=== PATIENT | female | born 1960 | race Caucasian/White ===

== ENCOUNTER → 2017-04-07 | Outpatient (CLI) | payer OTHER ==
--- NOTE | 2017-04-07 14:25 | XR ---
EXAMINATION TYPE: XR lumbar spine 2 or 3V DATE OF EXAM: 04/07/2017 CLINICAL HISTORY: Low back pain for a few months radiating down left leg. TECHNIQUE: Frontal and lateral images of the lumbar spine are obtained. COMPARISON: None FINDINGS: There are 5 lumbar type vertebral bodies identified. The lumbar spine shows straightened alignment without evidence of acute fracture or dislocation. Vertebral body heights and disk space he ights are within normal limits. No significant spurring is seen. Horizontal density superior to right L2 transverse process on frontal view does not reproduced on lateral view presumed external to patie nt. Cholecystectomy clips are noted. IMPRESSION: Straightening of lumbar spine otherwise fairly unremarkable study.
== END | disposition home or self-care (01) ==
LOC: RADXRMAIN 14:04
PROVIDERS: ATTEND Internal Medicine Geriatric Medicine
DX: M54.5 Low back pain (principal)
CPT/HCPCS: 72100

== ENCOUNTER → 2017-04-28 | Outpatient (CLI) | payer OTHER ==
--- NOTE | 2017-04-28 23:10 | MR ---
EXAMINATION TYPE: MR lumbar spine wo con DATE OF EXAM: 04/28/2017 COMPARISON: NONE HISTORY: LBP, radiates down rt leg x 2 mos, injured while lifting TECHNIQUE: Multiplanar, multisequence images of the lumbar spine were acquired. The lumbar vertebra have normal alignment. Disc spaces are fairly normal for age. There is a small po sterior disc herniation at L5-S1 on the right side.. There is developmentally adequate spinal canal a nd no spinal stenosis. The neural foramina are widely patent. There is no compression fracture. Sacro iliac joints appear normal. There is no paraspinal mass. I see no focal bone destruction. IMPRESSION: Small posterior disc herniation at L5-S1 on the right side. This is probably clinically significant i n this patient with right-sided pain.. No spinal stenosis. No fracture.
== END | disposition home or self-care (01) ==
LOC: RADMRIMAIN 17:51
PROVIDERS: ATTEND Physical Medicine & Rehabilitation
DX: M51.17 Intervertebral disc disorders with radiculopathy, lumbosacral region (principal)
CPT/HCPCS: 72148

== ENCOUNTER → 2018-02-22 | Outpatient (CLI) | payer MEDICAID ==
--- NOTE | 2018-02-22 23:19 | BD ---
EXAMINATION TYPE: Axial Bone Density DATE OF EXAM: 02/22/2018 COMPARISON: NONE CLINICAL HISTORY: 67-year-old female osteoporosis Height: 5 FT 3 IN Weight: 115 FRAX RISK QUESTIONS: History of Fracture in Adulthood: YES Secondary Osteoporosis: 3. Menopause before 45: YES RISK FACTORS HISTORY OF: Family History of Osteoporosis: YES Active: YES Postmenopausal woman: AGE 44 MEDICATIONS: Additional Medications: CLONOPIN, VIT D 3 Additional History: EXAM MEASUREMENTS: Bone mineral densitometry was performed using the [employer] System. Bone mineral density as measured about the Lumbar spine is: ----- L1-L4(G/cm2): 0.954 T Score Values are as follows: ----- L2: -2.0 ----- L3: -1.5 ----- L4: -2.5 ----- L1-L4: -1.9 BASELINE Bone mineral density about the R hip (g/cm2): 0.776 Bone mineral density about the L hip (g/cm2): 0.859 T Score values are as follows: -----R Neck: -1.9 -----L Neck: -1.3 -----R Total: -1.3 -----L Total: -1.2 BASELINE IMPRESSION: Osteopenia (T Score between -2.5 and -1). There is slightly increased risk of fracture and the patient may be considered for treatment. Re-Screen 2-5 years. NOTE: T-SCORE=SD OF THE YOUNG ADULT MEAN.
--- NOTE | 2018-02-23 14:52 | MM ---
Reason for exam: screening (asymptomatic). History: Patient is postmenopausal and history of other cancer. Physical Findings: A clinical breast exam by your physician is recommended on an annual basis and results should be correlated with mammographic findings. MG 3D Screening Mammo W/Cad Bilateral CC and MLO view(s) were taken. No prior studies available for comparison. The breast tissue is heterogeneously dense. This may lower the sensitivity of mammography. Finding: There are typically benign vascular calcifications in the outer quadrant of both breasts. There is no discrete abnormality. ASSESSMENT: Benign, BI-RAD 2 RECOMMENDATION: Routine screening mammogram of both breasts in 1 year.
== END | disposition home or self-care (01) ==
LOC: RADMAMWWP 06:48
PROVIDERS: ATTEND Internal Medicine Geriatric Medicine
DX: Z12.31 Encounter for screening mammogram for malignant neoplasm of breast (principal); M85.80 Other specified disorders of bone density and structure, unspecified site
CPT/HCPCS: 77063; 77067; 77080

== ENCOUNTER → 2018-11-12 | Outpatient (CLI) | payer BC ==
--- NOTE | 2018-11-12 15:27 | XR ---
EXAMINATION TYPE: XR chest 2V DATE OF EXAM: 11/12/2018 COMPARISON: NONE HISTORY: Cough TECHNIQUE: Frontal and lateral views of the chest are obtained. FINDINGS: Heart and mediastinum are normal. There is some pulmonary hyperinflation. There are no hil ar masses. Bony thorax is intact. IMPRESSION: No active cardiopulmonary disease. Normal heart.
== END | disposition home or self-care (01) ==
LOC: RADXRMAIN 15:08
PROVIDERS: ATTEND Emergency Medicine
DX: R05 Cough (principal)
CPT/HCPCS: 71046

== ENCOUNTER → 2020-02-12 | Outpatient (CLI) | payer BC ==
[2020-02-12 09:26] LABS: Basophils % (A) 1 %; Eosinophils # (A) 0.1 k/uL (0-0.7); Eosinophils % (A) 1 %; HCT 36.7 % (34.0-46.0); HGB 12.5 gm/dL (11.4-16.0); Lymphocytes # (A) 1.9 k/uL (1.0-4.8); Lymphocytes % (A) 38 %; MCH 30.1 pg (25.0-35.0); MCV 88.4 fL (80.0-100.0); Mean Platelet Volume 6.6; Monocytes # (A) 0.3 k/uL (0-1.0); Monocytes % (A) 7 %; Neutrophils # (A) 2.6 k/uL (1.3-7.7); Neutrophils % (A) 52 %; Platelet Count 260 k/uL (150-450); RBC 4.15 m/uL (3.80-5.40); RDW 11.9 % (11.5-15.5)
[2020-02-12 17:30] LABS: Erythrocyte Sedimentation Rate 10 mm/Hr (0-30)
[2020-02-12 20:51] LABS: ALT 15 U/L (8-44); AST 23 U/L (13-35); African American GFR (CKD) 93.5 (60.0-200.0); Albumin/Globulin Ratio 1.72 (1.60-3.17); Alkaline Phosphatase 53 U/L (41-126); C Reactive Protein <0.4 mg/dL (0.0-0.8); Calcium 9.6 mg/dL (8.7-10.3); Carbon Dioxide 27.5 mmol/L (21.6-31.8); Chloride 106 mmol/L (96-109); Globulin 2.5 g/dL (1.6-3.3); Glucose 99 mg/dL (70-110); Non-African American GFR(CKD) 80.7 (60.0-200.0); Potassium 3.6 mmol/L (3.5-5.5); Rheumatoid Factor, Qnt 7 IU/mL (0-15); Sodium 142 mmol/L (135-145); Total Bilirubin 0.8 mg/dL (0.3-1.2); Total Protein 6.8 g/dL (6.2-8.2)
[2020-02-12 21:15] LABS: Anti-DNA, DS unit <1.0 IU/mL; DNA Double-Stranded NEGATIVE (NEGATIVE)
[2020-02-13 11:41] LABS: HLA B27 NEGATIVE
== END | disposition home or self-care (01) ==
LOC: LABWHC1 08:12
PROVIDERS: ATTEND Internal Medicine Geriatric Medicine
DX: M19.90 Unspecified osteoarthritis, unspecified site (principal); E78.2 Mixed hyperlipidemia; M35.3 Polymyalgia rheumatica
CPT/HCPCS: 36415; 80053; 84443; 85025; 85652; 86038; 86140; 86225; 86431; 86812

== ENCOUNTER 2021-03-28 08:43 | Day surgery (SDC) | payer MEDICAID ==
[2021-03-27 13:34] VITALS: BMI 20.4
[~2021-03-28 08:43] MED LIST: LACTATED RINGERS 1,000 ML IV SCH
[2021-03-28 10:25] VITALS: RESP 16; TEMP 98.5
[2021-03-28] MEDS ORDERED: PROPOFOL 10 MG/ML 20 ML VIAL IV ONE (11:22)
--- NOTE | 2021-03-28 11:47 | P.PCN ---
Date of Procedure: 03/28/21 Preoperative Diagnosis: Screening Postoperative Diagnosis: Diverticulosis Internal hemorrhoids Procedure(s) Performed: Colonoscopy Anesthesia: MAC Surgeon: Alan Carballo Pathology: none sent Condition: stable Disposition: same day Indications for Procedure: 60-year-old female presents for screening colonoscopy. She has had some recent change in bowels with constipation episode. Complains of some abdominal pain occasionally. Last colonoscopy was 10 years ago. Operative Findings: Diverticulosis Internal hemorrhoids Description of Procedure: The patient was brought to the endoscopy suite and placed in left lateral decubitus position and adequate sedation was achieved using conscious sedation. A digital rectal exam was performed and mild internal hemorrhoids were palpated. An endoscope was then placed in the rectum and advanced to the cecum as identified by landmarks including the appendiceal orifice and the ileocecal valve. The prep was good. The colonoscope was then slowly withdrawn, examining for any mucosal abnormalities. The cecum, ascending, transverse, descending and sigmoid colon were visualized adequately. No obvious polyps were noted throughout the colon. No obvious neoplastic lesions were noted. There is mild evidence of diverticulosis. Retroflexion was performed in the rectum and internal hemorrhoids were visible. Excess air was removed, the colonoscope withdrawn and the procedure terminated. The patient was then transferred to the recovery unit in stable condition. Repeat colonoscopy should be performed in 8 years for screening.
[2021-03-28] MEDS ORDERED: IV FLUID CONTINUATION 600 ML IV ONE (11:50)
[2021-03-28 12:16] VITALS: BP 139/84; PULSE 87
== END 2021-03-28 12:27 | disposition home or self-care (01) ==
LOC: ORWHC2ENDO 08:43
PROVIDERS: ATTEND Surgery
DX: Z12.11 Encounter for screening for malignant neoplasm of colon (principal); K57.90 Diverticulosis of intestine, part unspecified, without perforation or abscess without bleeding; K64.8 Other hemorrhoids; G47.33 Obstructive sleep apnea (adult) (pediatric); K21.9 Gastro-esophageal reflux disease without esophagitis; Z79.899 Other long term (current) drug therapy
CPT/HCPCS: G0121; J2704

== ENCOUNTER → 2021-06-25 | Outpatient (CLI) | payer MEDICAID ==
--- NOTE | 2021-06-25 14:40 | US ---
EXAMINATION TYPE: US pelvic complete DATE OF EXAM: 06/25/2021 COMPARISON: NONE CLINICAL HISTORY: R10.2 PELVIC PAIN. Pelvic pain for the past 3 months with history of left oophorect davi. TECHNIQUE: Transabdominal (TA). Transabdominal sonographic images of the pelvis were acquired. Date of LMP: 10 years ago EXAM MEASUREMENTS: Uterus: 7.5 x 4.1 x 2.4 cm Endometrial Stripe: Surgical ablation 20 years prior. No measurable endometrial canal is evident. Right Ovary: 2.3 x 1.5 x 1.6 cm Left Ovary: Surgically absent 1. Uterus: Anteverted wnl 2. Endometrium: Surgically absent 3. Right Ovary: Hypoechoic 4. Left Ovary: Surgically absent 5. Bilateral Adnexa: wnl 6. Posterior cul-de-sac: wnl IMPRESSION: 1. No acute ultrasound abnormality ultrasound.
== END | disposition home or self-care (01) ==
LOC: RADUSWWP 14:06
PROVIDERS: ATTEND Internal Medicine Geriatric Medicine
DX: R10.2 Pelvic and perineal pain (principal)
CPT/HCPCS: 76856

== ENCOUNTER → 2021-07-21 | Outpatient (CLI) | payer MEDICAID, OTHER | END | disposition home or self-care (01) | LOC: LABWHC1 09:55 | PROVIDERS: ATTEND Emergency Medicine | DX: Z20.822 Contact with and (suspected) exposure to COVID-19 (principal) | CPT/HCPCS: 87635 ==

== ENCOUNTER → 2021-09-23 | Outpatient (CLI) | payer MEDICAID ==
[2021-09-23 15:20] LABS: Basophils # (A) 0.02 X 10*3/uL (0.00-0.10); Basophils % (A) 0.4 %; Eosinophils # (A) 0.11 X 10*3/uL (0.04-0.35); Eosinophils % (A) 2.3 %; HCT 41.4 % (37.2-46.3); HGB 14.1 g/dL (12.0-15.0); Immature Grans, Automated 0.2 %; Lymphocytes # (A) 1.79 X 10*3/uL (0.90-5.00); Lymphocytes % (A) 37.4 %; MCH 30.5 pg (27.0-32.0); MCHC 34.1 g/dL (32.0-37.0); MCV 89.4 fL (80.0-97.0); Mean Platelet Volume 9.1 fL (9.5-12.2); Monocytes # (A) 0.58 X 10*3/uL (0.20-1.00); Monocytes % (A) 12.1 %; NRBC Per 100 WBC 0 /100 WBCS (0.0-0.0); Neutrophils # (A) 2.28 X 10*3/uL (1.80-7.70); Neutrophils % (A) 47.6 %; Platelet Count 245 X 10*3/uL (140-440); RBC 4.63 X 10*6/uL (4.10-5.20); RDW 12.6 % (11.5-14.5); WBC 4.79 X 10*3/uL (4.50-10.00)
[2021-09-23 16:27] LABS: ALT 15 U/L (8-44); AST 24 U/L (13-35); African American GFR (CKD) 92.9 (60.0-200.0); Albumin 4.4 g/dL (3.8-4.9); Albumin/Globulin Ratio 1.63 (1.60-3.17); Alkaline Phosphatase 58 U/L (41-126); Calcium 9.3 mg/dL (8.7-10.3); Carbon Dioxide 25.6 mmol/L (20.0-27.5); Chloride 105 mmol/L (96-109); Globulin 2.7 g/dL (1.6-3.3); Glucose 96 mg/dL (70-110); Non-African American GFR(CKD) 80.1 (60.0-200.0); Potassium 3.8 mmol/L (3.5-5.5); Sodium 141 mmol/L (135-145); Total Protein 7.1 g/dL (6.2-8.2)
[2021-09-23 16:28] LABS: Chol/HDL Ratio 2.96 Ratio; LDL Cholesterol,Calculated 118.6 mg/dL (0.0-131.0)
== END | disposition home or self-care (01) ==
LOC: LABWHC1 08:51
PROVIDERS: ATTEND Internal Medicine Geriatric Medicine
DX: G47.33 Obstructive sleep apnea (adult) (pediatric) (principal); E78.2 Mixed hyperlipidemia; R73.9 Hyperglycemia, unspecified
CPT/HCPCS: 36415; 80053; 80061; 83036; 84443; 85025

== ENCOUNTER → 2022-04-15 | Outpatient (CLI) | payer MEDICAID | END | disposition home or self-care (01) | LOC: RADMAMWWP 10:52 | PROVIDERS: ATTEND Obstetrics & Gynecology | DX: Z53.9 Procedure and treatment not carried out, unspecified reason (principal) ==

== ENCOUNTER → 2022-04-21 | Outpatient (CLI) | payer MEDICAID ==
--- NOTE | 2022-04-22 19:07 | MM ---
Reason for Exam: Screening (asymptomatic). Last mammogram was performed 4 year(s) and 2 month(s) ago. Patient History: Menarche at age 14. First Full-Term at age 22. Left ovary removed at age 35. Postmenopausal. Other cancer. Risk Values: Patricia 5 year model risk: 1.2%. NCI Lifetime model risk: 5.8%. Prior Study Comparison: 02/22/2018 Bilateral Screening Mammogram, [facility]. Tissue Density: The breast tissue is heterogeneously dense. This may lower the sensitivity of mammography. Findings: Analyzed By CAD. Chronic nodules within the left upper breast, stable. No suspicious groups of microcalcifications, spiculated or lobular masses, architectural distortion or other secondary signs of malignancy are mammographically apparent. Overall Assessment: Benign, BI-RAD 2 Management: Screening Mammogram of both breasts in 1 year. A negative mammogram report should not preclude additional follow up of suspicious palpable abnormalities. Patient should continue monthly self breast exam. A clinical breast exam by your physician is recommended on an annual basis and results should be correlated with mammographic findings. Electronically signed and approved by: Nacho Howe D.O. Radiologis
== END | disposition home or self-care (01) ==
LOC: RADMAMWWP 07:42
PROVIDERS: ATTEND Obstetrics & Gynecology
DX: Z12.31 Encounter for screening mammogram for malignant neoplasm of breast (principal); Z78.0 Asymptomatic menopausal state
CPT/HCPCS: 77063; 77067

== ENCOUNTER → 2022-10-06 | Outpatient (CLI) | payer MEDICAID ==
[2022-10-06 18:38] LABS: Basophils # (A) 0.04 X 10*3/uL (0.00-0.10); Basophils % (A) 0.7 %; Eosinophils # (A) 0.11 X 10*3/uL (0.04-0.35); Eosinophils % (A) 1.9 %; HCT 41.8 % (37.2-46.3); HGB 13.9 g/dL (12.0-15.0); Immature Grans, Automated 0.2 %; Lymphocytes # (A) 1.74 X 10*3/uL (0.90-5.00); Lymphocytes % (A) 29.4 %; MCHC 33.3 g/dL (32.0-37.0); MCV 90.3 fL (80.0-97.0); Mean Platelet Volume 8.9 fL (9.5-12.2); Monocytes # (A) 0.59 X 10*3/uL (0.20-1.00); NRBC Per 100 WBC 0 /100 WBCS (0.0-0.0); Neutrophils # (A) 3.43 X 10*3/uL (1.80-7.70); Neutrophils % (A) 57.8 %; Platelet Count 248 X 10*3/uL (140-440); RBC 4.63 X 10*6/uL (4.10-5.20); RDW 11.9 % (11.5-14.5); WBC 5.92 X 10*3/uL (4.50-10.00)
[2022-10-06 20:22] LABS: ALT 19 U/L (8-44); AST 25 U/L (13-35); African American GFR (CKD) 109.3 (60.0-200.0); Albumin 4.5 g/dL (3.8-4.9); Albumin/Globulin Ratio 1.58 (1.60-3.17); Alkaline Phosphatase 71 U/L (41-126); BUN/Creat Ratio 20.97 Ratio (12.00-20.00); Blood Urea Nitrogen 14.3 mg/dL (9.0-27.0); Calcium 9.5 mg/dL (8.7-10.3); Carbon Dioxide 30.7 mmol/L (20.0-27.5); Chloride 102 mmol/L (96-109); Chol/HDL Ratio 2.81 Ratio; Globulin 2.9 g/dL (1.6-3.3); Glucose 105 mg/dL (70-110); LDL Cholesterol,Calculated 105.4 mg/dL (0.0-131.0); Non-African American GFR(CKD) 94.3 (60.0-200.0); Sodium 140 mmol/L (135-145); Total Protein 7.4 g/dL (6.2-8.2)
== END | disposition home or self-care (01) ==
LOC: LABWHC1 12:10
PROVIDERS: ATTEND Internal Medicine Geriatric Medicine
DX: E78.2 Mixed hyperlipidemia (principal); R73.9 Hyperglycemia, unspecified; R94.6 Abnormal results of thyroid function studies
CPT/HCPCS: 36415; 80053; 80061; 83036; 84443; 85025

== ENCOUNTER → 2023-11-04 | Outpatient (CLI) | payer MEDICAID ==
[2023-11-04 11:15] LABS: Basophils # (A) 0.03 X 10*3/uL (0.00-0.10); Basophils % (A) 0.5 %; Eosinophils % (A) 1.7 %; HCT 38.8 % (37.2-46.3); HGB 13.4 g/dL (12.0-15.0); Lymphocytes # (A) 1.92 X 10*3/uL (0.90-5.00); Lymphocytes % (A) 33.2 %; MCH 30.6 pg (27.0-32.0); MCHC 34.5 g/dL (32.0-37.0); MCV 88.6 FL (80.0-97.0); Monocytes # (A) 0.59 X 10*3/uL (0.20-1.00); Monocytes % (A) 10.2 %; NRBC Per 100 WBC 0 X 10*3/uL (0.00-0.01); Neutrophils # (A) 3.13 X 10*3/uL (1.80-7.70); Neutrophils % (A) 54.2 %; Platelet Count 241 X 10*3/uL (140-440); RBC 4.38 X 10*6/uL (4.10-5.20); RDW 11.8 % (11.5-14.5); WBC 5.78 X 10*3/uL (4.50-10.00)
[2023-11-04 11:55] LABS: ALT 12 U/L (8-44); AST 18 U/L (13-35); Albumin 4.5 g/dL (3.8-4.9); Albumin/Globulin Ratio 1.73 Ratio (1.60-3.17); Alkaline Phosphatase 59 U/L (41-126); BUN/Creat Ratio 18.33 Ratio (12.00-20.00); Blood Urea Nitrogen 16.5 mg/dL (9.0-27.0); Calcium 9.9 mg/dL (8.7-10.3); Chloride 103 mmol/L (96-109); Chol/HDL Ratio 2.62 Ratio; Globulin 2.6 g/dL (1.6-3.3); Glucose 121 mg/dL (70-110); Potassium 3.8 mmol/L (3.5-5.5); Sodium 141 mmol/L (135-145); Total Bilirubin 0.7 mg/dL (0.3-1.2); Total Protein 7.1 g/dL (6.2-8.2)
== END | disposition home or self-care (01) ==
LOC: LABWHC1 08:17
PROVIDERS: ATTEND Internal Medicine Geriatric Medicine
DX: E78.2 Mixed hyperlipidemia (principal); E55.9 Vitamin D deficiency, unspecified; R73.9 Hyperglycemia, unspecified; R94.6 Abnormal results of thyroid function studies
CPT/HCPCS: 36415; 80053; 80061; 82306; 83036; 84443; 85025

== ENCOUNTER → 2023-11-17 | Outpatient (CLI) | payer MEDICAID ==
--- NOTE | 2023-11-18 08:54 | MM ---
Reason for Exam: Screening (asymptomatic). Last mammogram was performed 1 year(s) and 7 month(s) ago. Patient History: Menarche at age 14. First Full-Term at age 22. Left ovary removed at age 35. Postmenopausal. Other cancer. Risk Values: Patricia 5 year model risk: 1.3%. NCI Lifetime model risk: 5.5%. Prior Study Comparison: 02/22/2018 Bilateral Screening Mammogram, [facility]. 04/21/2022 Bilateral MG 3D screening mammo w/cad, [facility]. Tissue Density: The breasts are heterogeneously dense, which may obscure small masses. Findings: Analyzed By CAD. There is no suspicious group of microcalcifications or new suspicious mass in either breast. Benign appearing calcifications. Overall Assessment: Benign, BI-RAD 2 Management: Screening Mammogram of both breasts in 1 year. . Patient should continue monthly self-breast exams. A clinical breast exam by your physician is recommended on an annual basis. This exam should not preclude additional follow-up of suspicious palpable abnormalities. Note on Patricia scores and lifetime risk: 1. A Patricia score greater than 3% is considered moderate risk. If this is the case, consider specialist referral to assess eligibility for a risk reducing agent. 2. If overall lifetime risk for the development of breast cancer is 20% or higher, the patient may qualify for future screening with alternating mammogram and breast MRI. Electronically signed and approved by: Andrea Abdul M.D. Radiologis
--- NOTE | 2023-11-18 11:55 | BD ---
EXAMINATION TYPE: Axial Bone Density DATE OF EXAM: 11/17/2023 CLINICAL HISTORY: 63 years old Female. ICD-10 CODE: Z13.820 Osteoporosis Screening Height: 5 ft 3 in Weight: 112 FRAX RISK QUESTIONS: Alcohol (3 or more units per day): no Family History (Parent hip fracture): no Glucocorticoids (More than 3mos): no (Ex: prednisone, prednisolone, methylprednisolone, dexamethasone, and hydrocortisone). History of Fracture in Adulthood: no Secondary Osteoporosis: 1. Type 1 Diabetes: no 2. Hyperthyroidism: no 3. Menopause before 45: yes 4. Malnutrition: no 5. Chronic liver disease: no Rheumatoid Arthritis: no Current Tobacco Use: no RISK FACTORS HISTORY OF: Surgery to Spine/Hip(right/left)/Wrist (right/left): no MEDICATIONS: Thyroid Medications: none Osteoporosis Medications: none EXAM MEASUREMENTS: Bone mineral densitometry was performed using the [employer] System. Bone mineral density as measured about the Lumbar spine is: ----- L1-L4(G/cm2): 0.949 T Score Values are as follows: ----- L1: -1.8 ----- L2: -2.0 ----- L3: -1.7 ----- L4: -2.3 ----- L1-L4: -1.9 Z Score Values are as follows: ----- L1: 0.1 ----- L2: -0.1 ----- L3: 0.2 ----- L4: -0.4 ----- L1-L4: 0.0 Bone mineral density has: decreased -0.5 % since study of: 2018 Bone mineral density about the R hip (g/cm2): 0.756 Bone mineral density about the L hip (g/cm2): 0.789 T Score values are as follows: -----R Neck: -2.0 -----L Neck: -1.8 -----R Total: -1.7 -----L Total: -1.9 Z Score values are as follows: -----R Neck: -0.4 -----L Neck: -1.0 -----R Total: -0.3 -----L Total: -0.5 Bone mineral density has: decreased -8.6 % since study of: 2018 FRAX%s: The graph provided illustrates a 15.3 % chance for a major osteoporotic fx and a 2.5 % chance for the hips probability for fx in 10 years time. IMPRESSION: Osteopenia (T Score between -2.5 and -1). There is slightly increased risk of fracture and the patient may be considered for treatment. Re-Screen 2-5 years. NOTE: T-SCORE=SD OF THE YOUNG ADULT MEAN.
== END | disposition home or self-care (01) ==
LOC: RADMAMWWP 07:36
PROVIDERS: ATTEND Internal Medicine Geriatric Medicine
DX: Z12.31 Encounter for screening mammogram for malignant neoplasm of breast (principal); Z13.820 Encounter for screening for osteoporosis; M85.89 Other specified disorders of bone density and structure, multiple sites; Z78.0 Asymptomatic menopausal state
CPT/HCPCS: 77063; 77067; 77080

== ENCOUNTER 2024-02-18 23:36 | Emergency (ER) | payer MEDICAID ==
[2024-02-18 23:39] VITALS: TEMP 97.8
[2024-02-19] MEDS: ACETAMINOPHEN TAB 325 MG TAB PO STA (00:46)
[2024-02-19] MEDS: SODIUM CHLORIDE 0.9% 1,000 ML IV STA (00:47)
[2024-02-19] MEDS: diphenhydrAMINE 50 MG/ML 1 ML VIAL IVP STA (00:51)
[2024-02-19] MEDS: METOCLOPRAMIDE 5 MG/ML 2 ML VIAL IVP STA (00:51)
[2024-02-19 01:07] LABS: Basophils % (A) 0 %; Eosinophils % (A) 0 %; HCT 41.6 % (34.0-46.0); HGB 14.8 gm/dL (11.4-16.0); Lymphocytes # (A) 0.5 k/uL (1.0-4.8); Lymphocytes % (A) 11 %; MCH 31.5 pg (25.0-35.0); MCHC 35.7 g/dL (31.0-37.0); MCV 88.4 fL (80.0-100.0); Mean Platelet Volume 6.7; Monocytes # (A) 0.1 k/uL (0-1.0); Monocytes % (A) 2 %; Neutrophils # (A) 4.3 k/uL (1.3-7.7); Neutrophils % (A) 86 %; Platelet Count 249 k/uL (150-450); RBC 4.71 m/uL (3.80-5.40); RDW 12.3 % (11.5-15.5)
[2024-02-19 01:15] LABS: Appearance,Urine Clear (Clear); Bilirubin,Urine Negative (Negative); Blood,Urine Negative (Negative); Color,Urine Colorless; Glucose,Urine (UA) Trace (Negative); Ketones,Urine Trace (Negative); Leukocyte Esterase,Urine Negative (Negative); Nitrite,Urine Negative (Negative); Protein,Urine Negative (Negative); Specific Gravity,Urine 1.004 (1.001-1.035); Urobilinogen,Urine <2.0 mg/dL (<2.0)
--- NOTE | 2024-02-19 01:19 | ED ---
General Adult HPI - General Chief complaint: Dizziness Stated complaint: Possible reaction to prescription meds Time Seen by Provider: 02/19/24 00:25 Source: patient, RN notes reviewed, old records reviewed Mode of arrival: wheelchair Limitations: no limitations - History of Present Illness Initial comments: Patient is a 63-year-old female who presents emergency department complaining of an episode of lightheadedness and some chest discomfort earlier this evening prior to arrival. Patient was at work when she states she began to feel ligh theaded and sat down. Had some chest palpitations at that time as well. States she has been under more stress lately as her has recently been diagnosed with Alzheimer's. Patient has also been complaining of left-sided abdominal rash and concern for new onset shingles. Was just started on prednisone as well as antivirals today. Took her first dose of 60 mg of oral prednisone as well as antiviral. Thinks the prednisone may have contributed to her symptoms as well. Currently feels improved at this time but does have a mild headache. Denies any chest pain, shortness of breath, abdominal pain, nausea, vomiting. Cardiac history in family members but not herself. Presents for further evaluation at this time. - Related Data Home Medications Medication Instructions Recorded Confirmed Ibuprofen 600 mg PO DIRECTED PRN 03/27/21 03/28/21 Multivit with Calcium,Iron,Min 1 each PO DAILY 03/27/21 03/28/21 [Women's Multivitamin] Omeprazole Magnesium [PriLOSEC OTC] 20 mg PO DAILY PRN 03/27/21 03/28/21 clonazePAM [Klonopin ODT Wafer] 0.25 mg PO HS 03/27/21 03/28/21 Allergies Allergy/AdvReac Type Severity Reaction Status Date / Time No Known Allergies Allergy Verified 02/18/24 23:39 Review of Systems ROS Statement: Those systems with pertinent positive or pertinent negative responses have been documented in the HPI. Review of Systems: CONST: Denies fever EYES: Denies blurry vision ENT: Denies nasal congestion C/V: Denies Chest pain RESP: Denies shortness of breath GI: Denies abdominal pain : Denies dysuria SKIN: Endorses shingle rash over the abdomen. MSK: Denies joint pain. NEURO: Denies headache ROS Other: All systems not noted in ROS Statement are negative. Past Medical History Past Medical History: Cancer, GERD/Reflux, Sleep Apnea/CPAP/BIPAP Additional Past Medical History / Comment(s): BASAL CELL CANCER., HX COLON POLYP., IBS., STATES BLOATING AND ABDOMINAL PAIN. History of Any Multi-Drug Resistant Organisms: None Reported Past Surgical History: Appendectomy, Cholecystectomy, Hysterectomy Additional Past Surgical History / Comment(s): MOHS PROCEDURE, PARTIAL HYSTERECTOMY-LEFT OVARY & TUBE REMOVED. COLONOSCOPY Past Anesthesia/Blood Transfusion Reactions: Postoperative Nausea & Vomiting (PONV) Past Psychological History: No Psychological Hx Reported Smoking Status: Former smoker Past Alcohol Use History: Occasional Past Drug Use History: None Reported - Past Family History Father Family Medical History: Cancer Additional Family Medical History / Comment(s): BRAIN CANCER Brother(s) Family Medical History: Cancer Additional Family Medical History / Comment(s): BLADDER AND LUNG CANCER General Exam - General Exam Comments Initial Comments: General: Appears in no acute distress. HEAD: Normal with no signs of head trauma. EYES: PERRLA, EOMI, conjunctiva normal, no discharge. ENT: Hearing grossly intact, normal oropharynx. RESPIRATORY: Clear breath sounds bilaterally. No wheezes, rales, or rhonchi. C/V: Regular rate and rhythm. S1 and S2 auscultated, no edema, peripheral pulses 2+ and intact throughout ABD: Abd is soft, nontender, nondistended EXT: Normal range of motion, no obvious deformity SKIN: Shingles appearing rash over the left abdominal wall. Isolated to the midclavicular line at this time. Does not seem to extend to the back. NEURO: Alert and oriented x 4. Cranial nerves II-XII intact. No focal sensory or strength deficits. GCS of 15. NIH is 0. Limitations: no limitations Course Vital Signs 02/18/24 02/19/24 23:37 00:28 Temperature 97.8 F Pulse Rate 103 H 101 H Respiratory 18 18 Rate Blood Pressure 179/91 169/83 O2 Sat by Pulse 98 96 Oximetry Medical Decision Making - Medical Decision Making Was pt. sent in by a medical professional or institution (, PA, ENVIRONMENTAL PROTECTION INSPECTOR, urgent care, hospital, or retirement...) When possible be specific @ -No Did you speak to anyone other than the patient for history (EMS, parent, family, police, friend...)? What history was obtained from this source @ -No Did you review nursing and triage notes (agree or disagree)? Why? @ -I reviewed and agree with nursing and triage notes Were old charts reviewed (outside hosp., previous admission, EMS record, old EKG, old radiological studies, urgent care reports/EKG's, retirement records)? Report findings @ -Old charts including past medical history in her EMR reviewed. Differential Diagnosis (chest pain, altered mental status, abdominal pain women, abdominal pain men, vaginal bleeding, weakness, fever, dyspnea, syncope, headache, dizziness, GI bleed, back pain, seizure, CVA, palpatations, mental health, musculoskeletal)? @ -Differential Dizziness: Benign paroxysmal positional Vertigo, Menieres disease, otitis media, acoustic neuroma, vertebrobasilar insufficiency, cerebellar stroke, encephalitis, hypovolemic, arrhythmia, coronary artery syndrome, anemia, this is not meant to be an all-inclusive list EKG interpreted by me (3pts min.). @ -As above X-rays interpreted by me (1pt min.). @ -Chest x-ray reveals no obvious acute cardiopulmonary process. CT interpreted by me (1pt min.). @ -None done U/S interpreted by me (1pt. min.). @ -None done What testing was considered but not performed or refused? (CT, X-rays, U/S, labs)? Why? @ -None What meds were considered but not given or refused? Why? @ -None Did you discuss the management of the patient with other professionals (professionals i.e. , PA, ENVIRONMENTAL PROTECTION INSPECTOR, lab, RT, psych nurse, forensic social worker, supervisor record press, teacher, financial compliance officer, case management social worker)? Give summary @ -No Was smoking cessation discussed for >3mins.? @ -No Was critical care preformed (if so, how long)? @ -No Were there social determinants of health that impacted care today? How? (Homelessness, low income, unemployed, alcoholism, drug addiction, transportation, low edu. Level, literacy, decrease access to med. care, snf, rehab)? @ -No Was there de-escalation of care discussed even if they declined (Discuss DNR or withdrawal of care, Hospice)? DNR status @ -No What co-morbidities impacted this encounter? (DM, HTN, Smoking, COPD, CAD, Cancer, CVA, ARF, Chemo, Hep., AIDS, mental health diagnosis, sleep apnea, morbid obesity)? @ -None Was patient admitted / discharged? Hospital course, mention meds given and route, prescriptions, significant lab abnormalities, going to OR and other pertinent info. @ -Patient presents following an episode of lightheadedness, with a mild headache as well as what sounds like a near syncopal episode. Recently started on prednisone and attributes it to this. Is taking prednisone for newly diagnosed shingles on her abdomen. Denies any other acute complaints other than a brief episode of chest discomfort when she became super anxious when she thought she might need to be admitted to the hospital. That quickly resolved. She was resting comfortably at this time. Vital signs within acceptable limits. We will obtain labs, screening EKG, chest x-ray. Patient in agreement this plan. She will be symptomatically treat with IV fluids, Benadryl, Reglan, as well as oral Tylenol. EKG shows no signs of acute ischemia.Chest x-ray unremarkable. Laboratory studies remarkable for undetectable troponin. Remainder the workup unremarkable. On reevaluation, patient is feeling improved and would like to go home. I do believe this is reasonable. Strict return precautions discussed. I did recommend she stop taking the prednisone as I do suspect this is the culprit of her symptoms that she was having this evening. She was in agreement this plan. She will follow-up with her PCP. Recommended she continue the antivirals for her shingles infection. I instructed the patient to follow up with their PCP in the next 1-3 days. I explained that the patient should return to the emergency department if they exp erience any worsening symptoms. Strict return precautions were discussed with the patient. The patient expressed understanding of these instructions. I answered all questions that the patient had. The patient was discharged home in [good] condition with their prescriptions and follow up information. Undiagnosed new problem with uncertain prognosis? @ -No Drug Therapy requiring intensive monitoring for toxicity (Heparin, Nitro, Insulin, Cardizem)? @ -No Were any procedures done? @ -No Diagnosis/symptom? @ -Near syncope likely secondary to medication reaction, shingles Acute, or Chronic, or Acute on Chronic? @ -Acute Uncomplicated (without systemic symptoms) or Complicated (systemic symptoms)? @ -Uncomplicated Side effects of treatment? @ -None Exacerbation, Progression, or Severe Exacerbation] @ -No Poses a threat to life or bodily function? @ -Unlikely - Lab Data Result diagrams: 02/19/24 01:03 02/19/24 01:03 Lab Results 02/19/24 02/19/24 02/19/24 Range/Units 01:03 01:03 01:03 WBC 5.0 (3.8-10.6) k/uL RBC 4.71 (3.80-5.40) m/uL Hgb 14.8 (11.4-16.0) gm/dL Hct 41.6 (34.0-46.0) % MCV 88.4 (80.0-100.0) fL MCH 31.5 (25.0-35.0) pg MCHC 35.7 (31.0-37.0) g/dL RDW 12.3 (11.5-15.5) % Plt Count 249 (150-450) k/uL MPV 6.7 Neutrophils % 86 % Lymphocytes % 11 % Monocytes % 2 % Eosinophils % 0 % Basophils % 0 % Neutrophils # 4.3 (1.3-7.7) k/uL Lymphocytes # 0.5 L (1.0-4.8) k/uL Monocytes # 0.1 (0-1.0) k/uL Eosinophils # 0.0 (0-0.7) k/uL Basophils # 0.0 (0-0.2) k/uL Sodium 137 (137-145) mmol/L Potassium 3.7 (3.5-5.1) mmol/L Chloride 105 (98-107) mmol/L Carbon Dioxide 24 (22-30) mmol/L Anion Gap 8 mmol/L BUN 17 (7-17) mg/dL Creatinine 0.59 (0.52-1.04) mg/dL Est GFR (CKD-EPI)AfAm >90 (>60 ml/min/1.73 sqM) Est GFR (CKD-EPI)NonAf >90 (>60 ml/min/1.73 sqM) Glucose 165 H (74-99) mg/dL Calcium 10.1 (8.4-10.2) mg/dL Total Bilirubin 0.7 (0.2-1.3) mg/dL AST 33 (14-36) U/L ALT 19 (4-34) U/L Alkaline Phosphatase 64 (38-126) U/L Troponin I <0.012 (0.000-0.034) ng/mL Total Protein 7.9 (6.3-8.2) g/dL Albumin 4.9 (3.5-5.0) g/dL Urine Color Urine Appearance (Clear) Urine pH (5.0-8.0) Ur Specific [place] (1.001-1.035) Urine Protein (Negative) Urine Glucose (UA) (Negative) Urine Ketones (Negative) Urine Blood (Negative) Urine Nitrite (Negative) Urine Bilirubin (Negative) Urine Urobilinogen (<2.0) mg/dL Ur Leukocyte Esterase (Negative) 02/19/24 Range/Units 01:10 WBC (3.8-10.6) k/uL RBC (3.80-5.40) m/uL Hgb (11.4-16.0) gm/dL Hct (34.0-46.0) % MCV (80.0-100.0) fL MCH (25.0-35.0) pg MCHC (31.0-37.0) g/dL RDW (11.5-15.5) % Plt Count (150-450) k/uL MPV Neutrophils % % Lymphocytes % % Monocytes % % Eosinophils % % Basophils % % Neutrophils # (1.3-7.7) k/uL Lymphocytes # (1.0-4.8) k/uL Monocytes # (0-1.0) k/uL Eosinophils # (0-0.7) k/uL Basophils # (0-0.2) k/uL Sodium (137-145) mmol/L Potassium (3.5-5.1) mmol/L Chloride (98-107) mmol/L Carbon Dioxide (22-30) mmol/L Anion Gap mmol/L BUN (7-17) mg/dL Creatinine (0.52-1.04) mg/dL Est GFR (CKD-EPI)AfAm (>60 ml/min/1.73 sqM) Est GFR (CKD-EPI)NonAf (>60 ml/min/1.73 sqM) Glucose (74-99) mg/dL Calcium (8.4-10.2) mg/dL Total Bilirubin (0.2-1.3) mg/dL AST (14-36) U/L ALT (4-34) U/L Alkaline Phosphatase (38-126) U/L Troponin I (0.000-0.034) ng/mL Total Protein (6.3-8.2) g/dL Albumin (3.5-5.0) g/dL Urine Color Colorless Urine Appearance Clear (Clear) Urine pH 7.0 (5.0-8.0) Ur Specific [place] 1.004 (1.001-1.035) Urine Protein Negative (Negative) Urine Glucose (UA) Trace H (Negative) Urine Ketones Trace H (Negative) Urine Blood Negative (Negative) Urine Nitrite Negative (Negative) Urine Bilirubin Negative (Negative) Urine Urobilinogen <2.0 (<2.0) mg/dL Ur Leukocyte Esterase Negative (Negative) - EKG Data -: EKG Interpreted by Me EKG Comments: 12-lead Electrocardiogram Interpretation Note EKG was reviewed and interpreted by myself. 12-lead ECG performed at 2349 is interpreted by me as revealing normal sinus rhythm at a rate of 80 beats per minute. [place] is normal. CO interval is 145 ms, QRS duration is 78 ms, QTc is 392 ms.. There were no ST or T wave abnormalities to suggest myocardial ischemia or injury. R wave progression across the precordium was satisfactory. By my interpretation this EKG is non-diagnostic for acute ischemia. Disposition Clinical Impression: Medication reaction, Near syncope, Shingles Disposition: HOME SELF-CARE Condition: Good Instructions (If sedation given, give patient instructions): Dizziness (ED) Additional Instructions: Stop taking prednisone for now and just take the antiviral medication. Follow- up with PCP regarding further steroid use. Return to the ER if worsening symptoms. Is patient prescribed a controlled substance at d/c from ED?: No Referrals: Andrea Manning MD [Primary Care Provider] - 1-2 days Time of Disposition: 02:26
[2024-02-19 01:37] LABS: ALT 19 U/L (4-34); AST 33 U/L (14-36); African American GFR (CKD) >90 (>60 ml/min/1.73 sqM); Albumin 4.9 g/dL (3.5-5.0); Alkaline Phosphatase 64 U/L (38-126); Anion Gap 8 mmol/L; Blood Urea Nitrogen 17 mg/dL (7-17); Calcium 10.1 mg/dL (8.4-10.2); Carbon Dioxide 24 mmol/L (22-30); Chloride 105 mmol/L (98-107); Glucose 165 mg/dL (74-99); Non-African American GFR(CKD) >90 (>60 ml/min/1.73 sqM); Potassium 3.7 mmol/L (3.5-5.1); Sodium 137 mmol/L (137-145); Total Bilirubin 0.7 mg/dL (0.2-1.3); Total Protein 7.9 g/dL (6.3-8.2)
[2024-02-19 02:34] VITALS: BP 152/91; PULSE 95; RESP 16
--- NOTE | 2024-02-19 02:36 | XR ---
EXAM: XR Chest, 2 Views CLINICAL HISTORY: ITS.REASON XR Reason: episode of chest pain TECHNIQUE: Frontal and lateral views of the chest. COMPARISON: No relevant prior studies available. FINDINGS: Lungs: No consolidation. 6 mm nodule adjacent to the left heart. Pleural space: No effusion. Heart: No cardiomegaly. Bones/joints: No acute findings. IMPRESSION: No acute cardiopulmonary process. 6 mm nodule adjacent to the left heart. Follow-up in 6-12 months.
== END 2024-02-19 02:38 | disposition home or self-care (01) ==
LOC: EC 23:36
DX: B02.9 Zoster without complications (principal); R55 Syncope and collapse; Z87.891 Personal history of nicotine dependence; Z90.49 Acquired absence of other specified parts of digestive tract
CPT/HCPCS: 36415; 71046; 80053; 81003; 84484; 85025; 93005; 96360; 99284

== ENCOUNTER → 2024-04-06 | Outpatient (CLI) | payer MEDICAID ==
--- NOTE | 2024-04-06 08:29 | US ---
EXAMINATION TYPE: US abdomen complete DATE OF EXAM: 04/06/2024 COMPARISON: NONE CLINICAL INDICATION: Female, 63 years old with history of R10.9 ABD PAIN; Intermittent LLQ pain x cou ple years, history of diverticulitis TECHNIQUE: Multiple sonographic images of the abdomen are obtained. FINDINGS: EXAM MEASUREMENTS: Liver Length: 19.5 cm CBD: 0.8 cm Spleen: 11.1 cm Right Kidney: 10.1 x 3.5 x 4.0 cm Left Kidney: 9.5 x 3.6 x 4.3 cm Pancreas: duct seen measuring 0.3cm Liver: enlarged Gallbladder: surgically absent Evidence for sonographic Martinez's sign: no CBD: wnl Spleen: wnl Right Kidney: wnl Left Kidney: wnl Upper IVC: wnl Abd Aorta: wnl The liver is homogenous. The intrahepatic portion of the IVC and proximal abdominal aorta are within normal limits. . The gallbladder surgically absent. Common bile duct is unremarkable. The visualiz ed portions of the pancreas are homogenous. The spleen is unremarkable. Kidneys are symmetric and f ree of hydronephrosis. No renal lesions are seen. IMPRESSION: No evidence for acute process. Hepatomegaly. [facility], , 04/06/2024 8:26 AM
== END | disposition home or self-care (01) ==
LOC: RADUSWWP 07:44
PROVIDERS: ATTEND Internal Medicine Geriatric Medicine
DX: R16.0 Hepatomegaly, not elsewhere classified (principal)
CPT/HCPCS: 76700

== ENCOUNTER → 2024-09-28 | Outpatient (CLI) | payer MEDICAID ==
[2024-09-28 14:56] LABS: Basophils # (A) 0.03 X 10*3/uL (0.00-0.10); Basophils % (A) 0.5 %; Eosinophils % (A) 1.6 %; HCT 36.6 % (37.2-46.3); HGB 12.6 g/dL (12.0-15.0); Lymphocytes # (A) 1.57 X 10*3/uL (0.90-5.00); Lymphocytes % (A) 24.5 %; MCH 30.3 pg (27.0-32.0); MCHC 34.4 g/dL (32.0-37.0); Mean Platelet Volume 9.2 FL (9.5-12.2); Monocytes # (A) 0.59 X 10*3/uL (0.20-1.00); Monocytes % (A) 9.2 %; NRBC Per 100 WBC 0 X 10*3/uL (0.00-0.01); Neutrophils # (A) 4.11 X 10*3/uL (1.80-7.70); Neutrophils % (A) 63.9 %; Platelet Count 238 X 10*3/uL (140-440); RBC 4.16 X 10*6/uL (4.10-5.20); RDW 11.7 % (11.5-14.5); WBC 6.42 X 10*3/uL (4.50-10.00)
[2024-09-28 19:18] LABS: ALT 51 U/L (8-44); AST 54 U/L (13-35); Albumin 4.2 g/dL (3.8-4.9); Albumin/Globulin Ratio 1.62 Ratio (1.60-3.17); Alkaline Phosphatase 92 U/L (41-126); BUN/Creat Ratio 10.29 Ratio (12.00-20.00); Blood Urea Nitrogen 7.2 mg/dL (9.0-27.0); Calcium 9.4 mg/dL (8.7-10.3); Carbon Dioxide 26.9 mmol/L (21.6-31.8); Chloride 105 mmol/L (96-109); Chol/HDL Ratio 2.42 Ratio; Globulin 2.6 g/dL (1.6-3.3); Glucose 115 mg/dL (70-110); LDL Cholesterol,Calculated 81.9 mg/dL (0.0-131.0); Sodium 143 mmol/L (135-145); Total Bilirubin 0.5 mg/dL (0.3-1.2); Total Protein 6.8 g/dL (6.2-8.2)
== END | disposition home or self-care (01) ==
LOC: LABWHC1 12:23
PROVIDERS: ATTEND Physician Assistant
DX: E78.2 Mixed hyperlipidemia (principal); R73.9 Hyperglycemia, unspecified; R94.6 Abnormal results of thyroid function studies
CPT/HCPCS: 36415; 80053; 80061; 83036; 84443; 85025

== ENCOUNTER → 2024-10-11 | Outpatient (CLI) | payer MEDICAID ==
--- NOTE | 2024-10-11 14:31 | CT ---
EXAMINATION TYPE: CT abdomen pelvis w con DATE OF EXAM: 10/11/2024 COMPARISON: None CLINICAL INDICATION: Female, 63 years old with history of K57.32 DVTRCLI OF LG INT W/O PERFORATION OR ABSCES; PHH, ABDOMINAL PAIN. DIVERTICULITIS. TECHNIQUE: Performed with Oral Contrast and with IV Contrast, patient injected with 100ml mL of Isovue 300. CT DLP: [address] CTDI: mGy Automated exposure control for dose reduction was used. Findings: The lung bases are clear. The gallbladder is surgically absent. There is no biliary ductal dilatation. There is no focal mass or organomegaly involving the liver, pancreas, spleen or adrenal glands. There is no solid renal mass or hydronephrosis and there is homogeneous contrast enhancement of the r enal parenchyma. The caliber the abdominal aorta is normal is no retroperitoneal adenopathy or hemorr vaughn. There is moderate diverticulosis of the sigmoid colon. There is diffuse thickening of the sigmoid col on and rectal wall with mild inflammatory change in the pericolic fat. Findings are consistent with a n acute inflammatory processes diverticulitis or inflammatory bowel disease. There is no abscess, chet e fluid or free intraperitoneal air. There is no bowel obstruction. No pelvic mass, free fluid, abscess or adenopathy. The osseous structures and soft tissues are intact. IMPRESSION: 1. Moderate diverticulosis of the sigmoid colon. 2. Diffuse bowel wall thickening involving the sigmoid colon and rectum with mild inflammatory change in the pericolic flat. Findings are consistent with diverticulitis or possibly inflammatory bowel di sease. There is no bowel obstruction, free air, free fluid or abscess. [facility], , 10/11/2024 2:29 PM
== END | disposition home or self-care (01) ==
LOC: RADCTMAIN 11:39
PROVIDERS: ATTEND Surgery Plastic and Reconstructive Surgery
DX: K57.32 Diverticulitis of large intestine without perforation or abscess without bleeding (principal); K57.30 Diverticulosis of large intestine without perforation or abscess without bleeding
CPT/HCPCS: 74177; Q9967

== ENCOUNTER 2024-10-19 08:46 | Day surgery (SDC) | payer MEDICAID ==
[2024-10-18 08:26] VITALS: BMI 18.4
--- NOTE | 2024-10-19 08:35 | P.GSHP ---
History of Present Illness H&P Date: 10/19/24 CHIEF COMPLAINT: GERD and colon screen HISTORY OF PRESENT ILLNESS: The patient is a 63-year-old female who presents with gastroesophageal reflux disease and need for colon screen. Upper and lower endoscopy were offered for further evaluation and management. PAST MEDICAL HISTORY: Please see list. PAST SURGICAL HISTORY: Please see list. MEDICATIONS: Please see list. ALLERGIES: Please see list. SOCIAL HISTORY: No illicit drug use FAMILY HISTORY: No reports of Crohn disease or ulcerative colitis. REVIEW OF ORGAN SYSTEMS: CONSTITUTIONAL: No reports of fevers or chills. GI: Denies any blood in stools or constipation. PHYSICAL EXAM: VITAL SIGNS: Stable GENERAL: Well-developed pleasant in no acute distress. HEENT: No scleral icterus. Extraocular movements grossly intact. Moist buccal mucosa. NECK: Supple without lymphadenopathy. CHEST: Unlabored respirations. Equal bilateral excursions. CARDIOVASCULAR: Regular rate and rhythm. Distal 2+ pulses. ABDOMEN: Soft, nondistended. MUSCULOSKELETAL: No clubbing, cyanosis, or edema. ASSESSMENT: 1. Gastroesophageal reflux disease 2. Colon screen. PLAN: 1. Recommend proceeding with an upper and lower endoscopy Past Medical History Past Medical History: Cancer, GERD/Reflux, Sleep Apnea/CPAP/BIPAP Additional Past Medical History / Comment(s): HX BASAL CELL CANCER, HX COLON POLYP, IBS no device for sleep apnea, slightly enlarged liver. History of Any Multi-Drug Resistant Organisms: None Reported Past Surgical History: Appendectomy, Cholecystectomy, Hysterectomy Additional Past Surgical History / Comment(s): MOHS PROCEDURE, PARTIAL HYSTERECTOMY-LEFT OVARY & TUBE REMOVED, COLONOSCOPY. Past Anesthesia/Blood Transfusion Reactions: No Reported Reaction, Postoperative Nausea & Vomiting (PONV) Smoking Status: Former smoker - Past Family History Father Family Medical History: Cancer Additional Family Medical History / Comment(s): BRAIN CANCER. Brother(s) Family Medical History: Cancer Additional Family Medical History / Comment(s): BLADDER AND LUNG CANCER. Sister(s) Family Medical History: Cancer Additional Family Medical History / Comment(s): Lung cancer. Medications and Allergies Home Medications Medication Instructions Recorded Confirmed Type Ospemifene [Osphena] 60 mg PO Q182D 10/18/24 10/18/24 History Sennosides-Docusate Sodium 1 tab PO DAILY 10/18/24 10/18/24 History [Senokot-S] clonazePAM [Clonazepam] 0.5 - 1 mg PO HS PRN 10/18/24 10/18/24 History Allergies Allergy/AdvReac Type Severity Reaction Status Date / Time No Known Allergies Allergy Verified 10/18/24 08:14
[~2024-10-19 08:46] MED LIST changes: -LACTATED RINGERS 1,000 ML IV SCH; +LIDOCAINE 1% (10MG/ML) FOR IV START INTRADERMA PRN
[2024-10-19 09:37] VITALS: TEMP 97
[2024-10-19] MEDS: IV FLUID CONTINUATION 1,000 ML IV ONE (09:52)
[2024-10-19] MEDS: LACTATED RINGERS 1,000 ML IV SCH (09:53)
[2024-10-19] MEDS ORDERED: PROPOFOL 10 MG/ML 20 ML VIAL IV ONE (10:00)
[2024-10-19] MEDS ORDERED: LIDOCAINE 1% INJ 10MG/ML (20 ML MDV) ONE (10:00)
--- NOTE | 2024-10-19 10:37 | P.PCN ---
Date of Procedure: 10/19/24 Description of Procedure: PREOPERATIVE DIAGNOSIS: Diverticulosis POSTOPERATIVE DIAGNOSIS: Sigmoid diverticulitis with partial bowel obstruction OPERATION: Colonoscopy to the sigmoid colon. SURGEON: Shweta Ingram MD. ANESTHESIA: MAC. INDICATIONS: The patient is a 63-year-old female who presents. She reports diverticulosis. Benefits and risks were described and informed consent was obtained. DESCRIPTION OF PROCEDURE: The patient had undergone Suprep. She had been brought into the operating room and laid in the left lateral decubitus position. After adequate intravenous sedation, the rectum was examined with 2% lidocaine jelly. External hemorrhoids were encountered. The rectal tone was loose. No lesions were palpated in the rectal vault. An Olympus colonoscope was advanced along the rectum to a very tortuous sigmoid colon. The scope was then exchanged for a pediatric colonoscope. Despite multiple maneuvers, the sigmoid colon had severe tortuosity preventing further advancement of scope including multiple pockets of diverticulosis with early features of diverticulitis and increased mucus. The scope was passed to 20 cm from the anal verge. No evidence of polyps were identified. As the patient posed high risk for perforation with persistence of the procedure, the procedure was discontinued. The colon was desufflated. The patient had tolerated the procedure well. Withdrawal time was over 6 minutes. FINDINGS: [place] preparation quality scale 1 (1-5) Tortuous sigmoid colon with acute sigmoid diverticulitis with stricture preventing further advancement of the scope. External prolapsed hemorrhoids. Scope advanced to sigmoid colon at 20 cm. No arteriovenous malformations. No adenomatous polyps. No focal colitis. RECOMMENDATIONS: Completion of colonoscopy evaluation with barium enema. CBC with CMP for acute diverticulitis EKG advised for acute diverticulitis Plan - Discharge Summary Discharge Rx Participant: No New Discharge Prescriptions: No Action clonazePAM [Clonazepam] 0.5 - 1 mg PO HS PRN PRN Reason: Sleep Sennosides-Docusate Sodium [Senokot-S] 1 tab PO DAILY Ospemifene [Osphena] 60 mg PO Q182D Discharge Medication List Ospemifene [Osphena] 60 mg PO Q182D 10/18/24 [History] Sennosides-Docusate Sodium [Senokot-S] 1 tab PO DAILY 10/18/24 [History] clonazePAM [Clonazepam] 0.5 - 1 mg PO HS PRN 10/18/24 [History]
--- NOTE | 2024-10-19 10:44 | P.PCN ---
Date of Procedure: 10/19/24 Description of Procedure: PREOPERATIVE DIAGNOSIS: Epigastric abdominal pain Dysphagia POSTOPERATIVE DIAGNOSIS: Upper esophageal stenosis Strict polyps Gastritis Gastroesophageal reflux disease with erosive esophagitis Diaphragmatic hiatal hernia OPERATION: Esophagogastroduodenoscopy with rigid dilator over the guidewire 51 Fr with dilation Esophagogastroduodenoscopy with cold forceps biopsies stomach/antrum, duodenum, esophagus SURGEON: Shweta Ingram MD ANESTHESIA: MAC. INDICATIONS: The patient is a 63-year-old male who presents with dysphagia and abdominal pain. Benefits and risks of the procedure were described. Informed consent was obtained. DESCRIPTION: The patient was brought into the endoscopy suite and laid in the left lateral decubitus position. After a timeout was confirmed, the procedure was initiated. An Olympus gastroscope was passed into the posterior oropharynx where an upper esophageal stenosis was identified. The scope was passed down to the distal esophagus. To address the upper esophageal stenosis, rigid dilator over guidewire was selected. Next using an E[place]an rigid dilator, a guidewire was placed through the gastroscope. Next the scope was withdrawn. A 51-Macanese rigid Eritrean dilator was passed carefully along the posterior oropharynx to 45 cm and left in place for 2-3 minutes stretch. The dilator was withdrawn including the guidewire. The scope was reentered along the posterior oropharynx with no findings of full- thickness tear of the upper esophageal sphincter. Additional findings below. Within the stomach, gastritis with gastric ulcerations were identified along the body of the stomach with cold forceps biopsies obtained. The lower esophageal valve was evaluated with Hill grade 2 lower esophageal valve. LA grade B erosive esophagitis was identified. No full-thickness injury was encountered. The GI tract was desufflated. The patient tolerated the procedure well. FINDINGS: Upper esophageal stenosis dilated 51-Macanese rigid dilator Diaphragmatic hiatus at 37 cm from the incisors Squamocolumnar junction 40 cm from the incisors. Diaphragmatic hiatal hernia, 3 cm Gastritis along the gastric body and fundus cold forceps biopsies obtained Hyperplastic gastric polyp, 2 to 3 mm, multiple Duodenum with mild duodenitis LA grade B erosive esophagitis Hill grade 2 lower esophageal valve. RECOMMENDATIONS: Repeat upper endoscopy as needed Omeprazole 40 mg for 2 Plan - Discharge Summary Discharge Rx Participant: No New Discharge Prescriptions: New Amoxic-Pot Clav 875-125Mg [Augmentin 875-125] 1 tab PO Q12HR 1 Days #20 tab Continue clonazePAM 0.5 - 1 mg PO HS PRN PRN Reason: Sleep Sennosides-Docusate Sodium [Senokot-S] 1 tab PO DAILY Ospemifene [Osphena] 60 mg PO Q182D Discharge Medication List Ospemifene [Osphena] 60 mg PO Q182D 10/18/24 [History] Sennosides-Docusate Sodium [Senokot-S] 1 tab PO DAILY 10/18/24 [History] clonazePAM 0.5 - 1 mg PO HS PRN 10/18/24 [History] Amoxic-Pot Clav 875-125Mg [Augmentin 875-125] 1 tab PO Q12HR 1 Days #20 tab 10/19/24 [Rx] Follow up Appointment(s)/Referral(s): Shweta Ingram MD [STAFF PHYSICIAN] - 11/07/24 11:00 am Patient Instructions/Handouts: *Surgery [facility] - (Anesthesia) Discharge Instructions Outpatient Surgery, Barium Enema (DC), Diverticulitis (DC), Esophageal Dilation (GEN) Discharge Disposition: HOME SELF-CARE
[2024-10-19 13:04] VITALS: BP 131/72; PULSE 78; RESP 16
--- NOTE | 2024-10-19 13:09 | P.PN ---
Progress Note - Text Progress Note Date: 10/19/24 Due to large bowel obstruction identified, semiurgent colectomy described. Patient has not had a cardiac risk assessment. Twelve-lead EKG ordered. Cardiology referral advised
== END 2024-10-19 14:25 | disposition home or self-care (01) ==
LOC: ORWHC2ENDO 08:46
PROVIDERS: ATTEND Surgery Plastic and Reconstructive Surgery
DX: K22.2 Esophageal obstruction (principal); K29.70 Gastritis, unspecified, without bleeding; K21.00 Gastro-esophageal reflux disease with esophagitis, without bleeding; K44.9 Diaphragmatic hernia without obstruction or gangrene; K57.32 Diverticulitis of large intestine without perforation or abscess without bleeding; K31.7 Polyp of stomach and duodenum; K29.80 Duodenitis without bleeding; K56.600 Partial intestinal obstruction, unspecified as to cause; G47.30 Sleep apnea, unspecified; K58.9 Irritable bowel syndrome, unspecified; Z87.891 Personal history of nicotine dependence
CPT/HCPCS: 88305; 43239; 43248; 45330; J2003; J2704

== ENCOUNTER → 2024-10-20 | Outpatient (CLI) | payer MEDICAID ==
--- NOTE | 2024-10-20 13:40 | FL ---
EXAMINATION TYPE: FL barium enema w air contrast DATE OF EXAM: 10/20/2024 COMPARISON: CLINICAL INDICATION: Female, 63 years old with history of POST COLONOSCOPY. PRELIM 4-3 TOO MUCH AIR. CLEAR LIQ/NPO; [facility], TECHNIQUE: A air contrast barium enema study is performed. A total of 156 seconds of fluoroscopic t telly was utilized during procedure and 28 images obtained. Total dose area product (DAP) in uGy*m?, m Gy*cm? (or similar): . FINDINGS: Deputy Juvenile Officer view of the abdomen shows overall non-obstructive bowel gas pattern. Scattered intraluminal debris limits evaluation of tiny polyps. No evidence of any mass or sizable po lyp, obstructing or constricting lesion throughout the colon. Moderate sigmoid diverticulosis with ci rcular muscle hypertrophy. Appendix was filled and appeared normal. The terminal ileum was refluxed and appears within normal limits. IMPRESSION: Moderate sigmoid diverticulosis with circular muscle hypertrophy [facility], , 10/20/2024 1:38 PM
== END | disposition home or self-care (01) ==
LOC: RADFLMAIN 10:35
PROVIDERS: ATTEND Surgery Plastic and Reconstructive Surgery
DX: K57.32 Diverticulitis of large intestine without perforation or abscess without bleeding (principal); K57.30 Diverticulosis of large intestine without perforation or abscess without bleeding; R13.10 Dysphagia, unspecified; M62.89 Other specified disorders of muscle
CPT/HCPCS: 74280

== ENCOUNTER → 2024-11-20 | Outpatient (CLI) | payer MEDICAID ==
[2024-11-20 15:37] LABS: ALT 27 U/L (8-44); AST 28 U/L (13-35); Albumin 4.3 g/dL (3.8-4.9); Albumin/Globulin Ratio 1.65 Ratio (1.60-3.17); Alkaline Phosphatase 60 U/L (41-126); BUN/Creat Ratio 18.43 Ratio (12.00-20.00); Blood Urea Nitrogen 12.9 mg/dL (9.0-27.0); Calcium 9.5 mg/dL (8.7-10.3); Carbon Dioxide 27.3 mmol/L (21.6-31.8); Chloride 104 mmol/L (96-109); Globulin 2.6 g/dL (1.6-3.3); Glucose 97 mg/dL (70-110); Potassium 4.1 mmol/L (3.5-5.5); Sodium 142 mmol/L (135-145); Total Bilirubin 0.4 mg/dL (0.3-1.2); Total Protein 6.9 g/dL (6.2-8.2)
[2024-11-20 15:41] LABS: Basophils # (A) 0.04 X 10*3/uL (0.00-0.10); Eosinophils # (A) 0.09 X 10*3/uL (0.04-0.35); Eosinophils % (A) 2.3 %; HCT 40.2 % (37.2-46.3); HGB 13.4 g/dL (12.0-15.0); Lymphocytes # (A) 1.76 X 10*3/uL (0.90-5.00); Lymphocytes % (A) 45.2 %; MCH 29.3 pg (27.0-32.0); MCHC 33.3 g/dL (32.0-37.0); Mean Platelet Volume 9.2 FL (9.5-12.2); Monocytes # (A) 0.36 X 10*3/uL (0.20-1.00); Monocytes % (A) 9.3 %; NRBC Per 100 WBC 0 X 10*3/uL (0.00-0.01); Neutrophils # (A) 1.63 X 10*3/uL (1.80-7.70); Neutrophils % (A) 41.9 %; Platelet Count 278 X 10*3/uL (140-440); RBC 4.57 X 10*6/uL (4.10-5.20); RDW 11.9 % (11.5-14.5); WBC 3.89 X 10*3/uL (4.50-10.00)
== END | disposition home or self-care (01) ==
LOC: LABWHC1 10:25
PROVIDERS: ATTEND Surgery Plastic and Reconstructive Surgery
DX: K57.92 Diverticulitis of intestine, part unspecified, without perforation or abscess without bleeding (principal)
CPT/HCPCS: 36415; 80053; 85025; 86850; 86900; 86901

== ENCOUNTER → 2025-01-23 | Outpatient (CLI) | payer MEDICAID ==
[2025-01-23 15:36] LABS: Basophils # (A) 0.03 X 10*3/uL (0.00-0.10); Basophils % (A) 0.3 %; Eosinophils # (A) 0.06 X 10*3/uL (0.04-0.35); Eosinophils % (A) 0.6 %; HCT 35.2 % (37.2-46.3); HGB 11.8 g/dL (12.0-15.0); Immature Grans, Automated 0.50 %; Lymphocytes # (A) 1.04 X 10*3/uL (0.90-5.00); Lymphocytes % (A) 9.9 %; MCH 29.5 pg (27.0-32.0); MCHC 33.5 g/dL (32.0-37.0); MCV 88.0 FL (80.0-97.0); Monocytes # (A) 0.94 X 10*3/uL (0.20-1.00); Monocytes % (A) 9.0 %; NRBC Per 100 WBC 0 X 10*3/uL (0.00-0.01); Neutrophils # (A) 8.38 X 10*3/uL (1.80-7.70); Neutrophils % (A) 79.7 %; Platelet Count 349 X 10*3/uL (140-440); RBC 4.00 X 10*6/uL (4.10-5.20); RDW 11.5 % (11.5-14.5); WBC 10.50 X 10*3/uL (4.50-10.00)
[2025-01-23 15:49] LABS: ALT 296 U/L (8-44); AST 99 U/L (13-35); Albumin 3.9 g/dL (3.8-4.9); Albumin/Globulin Ratio 1.18 Ratio (1.60-3.17); Alkaline Phosphatase 390 U/L (41-126); Anion Gap 12.30 mmol/L (4.00-12.00); BUN/Creat Ratio 12.43 Ratio (12.00-20.00); Blood Urea Nitrogen 8.7 mg/dL (9.0-27.0); Calcium 9.5 mg/dL (8.7-10.3); Carbon Dioxide 27.7 mmol/L (21.6-31.8); Chloride 98 mmol/L (96-109); Cholesterol 172.00 mg/dL (0.00-200.00); Creatine Kinase 11 U/L (26-186); Globulin 3.3 g/dL (1.6-3.3); Glucose 158 mg/dL (70-110); HDL Cholesterol 72.60 mg/dL (40.00-60.00); LDL Cholesterol,Calculated 83.8 mg/dL (0.0-131.0); Potassium 4.2 mmol/L (3.5-5.5); Sodium 138 mmol/L (135-145); T4, Free (Free Thyroxine) 1.13 ng/dL (0.80-1.80); Total Protein 7.2 g/dL (6.2-8.2); Triglycerides 78.10 mg/dL (0.00-149.00); Uric Acid 3.3 mg/dL (2.9-7.7); VLDL Calculation 15.62 mg/dL (5.00-40.00)
[2025-01-23 15:50] LABS: Vitamin B12 408.0 pg/mL (200.0-944.0)
== END | disposition home or self-care (01) ==
LOC: LABWHC1 10:23
PROVIDERS: ATTEND Physician Assistant
DX: E78.2 Mixed hyperlipidemia (principal); E53.8 Deficiency of other specified B group vitamins; M79.10 Myalgia, unspecified site; M10.9 Gout, unspecified; R73.9 Hyperglycemia, unspecified; R94.6 Abnormal results of thyroid function studies
CPT/HCPCS: 36415; 80053; 80061; 82550; 82607; 83036; 84439; 84443; 84550; 85025

== ENCOUNTER → 2025-01-24 | Outpatient (CLI) | payer MEDICAID ==
--- NOTE | 2025-01-24 10:36 | US ---
EXAMINATION TYPE: US abdomen limited DATE OF EXAM: 01/24/2025 COMPARISON: CT ultrasound CLINICAL INDICATION: Female, 64 years old with history of R10.9 ABD PAIN; Abnormal labs, GB removed TECHNIQUE: Grayscale and color Doppler imaging of the right upper quadrant was performed. FINDINGS: EXAM MEASUREMENTS: Liver Length: 19.5 cm CBD: 0.7 cm Right Kidney: 10.6 x 5.0 x 3.8 cm Pancreas: Head not well seen Liver: Enlarged in size Gallbladder: Surgically absent Evidence for sonographic Martinez's sign: neg CBD: wnl Right Kidney: No hydronephrosis or masses seen IMPRESSION: No evidence for acute process. [facility], , 01/24/2025 10:34 AM
== END | disposition home or self-care (01) ==
LOC: RADUSWWP 09:21
PROVIDERS: ATTEND Physician Assistant
DX: R10.9 Unspecified abdominal pain (principal)
CPT/HCPCS: 76705

== ENCOUNTER → 2025-01-31 | Outpatient (CLI) | payer MEDICAID ==
[2025-01-31 15:39] LABS: ALT 83 U/L (8-44); AST 34 U/L (13-35); Albumin 4.0 g/dL (3.8-4.9); Albumin/Globulin Ratio 1.54 Ratio (1.60-3.17); Alkaline Phosphatase 282 U/L (41-126); Anion Gap 8.80 mmol/L (4.00-12.00); BUN/Creat Ratio 16.86 Ratio (12.00-20.00); Blood Urea Nitrogen 11.8 mg/dL (9.0-27.0); Calcium 9.5 mg/dL (8.7-10.3); Carbon Dioxide 30.2 mmol/L (21.6-31.8); Chloride 102 mmol/L (96-109); Globulin 2.6 g/dL (1.6-3.3); Glucose 76 mg/dL (70-110); Potassium 4.4 mmol/L (3.5-5.5); Sodium 141 mmol/L (135-145); Total Protein 6.6 g/dL (6.2-8.2)
== END | disposition home or self-care (01) ==
LOC: LABWHC1 10:25
PROVIDERS: ATTEND Physician Assistant
DX: E86.0 Dehydration (principal)
CPT/HCPCS: 36415; 80053

== ENCOUNTER → 2025-02-06 | Outpatient (CLI) | payer MEDICAID ==
--- NOTE | 2025-02-06 10:18 | US ---
EXAMINATION TYPE: US venous doppler duplex LE LT DATE OF EXAM: 02/06/2025 9:59 AM COMPARISON: NONE CLINICAL INDICATION: Female, 64 years old with history of R60.9 EDEMA L LOWER EXTREMITY; Left leg pa in, no h/o dvt TECHNIQUE: The lower extremity deep venous system is examined utilizing real time linear array sonog jaquelin with graded compression, doppler sonography and color-flow sonography. Grayscale, color doppler , spectral doppler imaging performed of the deep veins of the lower extremities FINDINGS: SIDE PERFORMED: Left VESSELS IMAGED: Common Femoral Vein Deep Femoral Vein Greater Saphenous Vein * Femoral Vein Popliteal Vein Small Saphenous Vein * Proximal Calf Veins (* superficial vessels) Left Leg: Negative for DVT; There is normal flow, compressibility, vascular waveforms. Called [facility] on number given on order - negative IMPRESSION: No evidence for left lower extremity deep vein thrombosis. [facility], Workstation: [id number], 02/06/2025 10:16 AM
== END | disposition home or self-care (01) ==
LOC: RADUSWWP 09:41
PROVIDERS: ATTEND Internal Medicine Geriatric Medicine
DX: R60.9 Edema, unspecified (principal)